=== PATIENT | male | born 1980 ===

== ENCOUNTER → 2016-08-22 | Outpatient (REF) | payer OTHER ==
[2016-08-22 11:07] LABS: % NORMAL FORMS 14 % (>=4); IMMOTILITY 29 %; NON PROGRESSIVE MOTILITY (c) 14 %; PROGRESSIVE MOTILITY (a) 57 % (>=32); TOTAL FUNCTIONAL 19.8 M/Ejac.; TOTAL MOTILITY 71 % (>=40)
== END ==
LOC: M LAB REF 10:58
PROVIDERS: ATTEND Obstetrics & Gynecology Reproductive Endocrinology
DX: N46.9 Male infertility, unspecified (principal)